=== PATIENT | female | born 1960 | race Caucasian/White ===

== ENCOUNTER 2019-07-11 00:16 | Day surgery (SDC) | payer BC, SELFPAY ==
[2019-07-07 11:13] VITALS: BMI 28.2
[2019-07-11 07:10] VITALS: BP 125/82; PULSE 99; RESP 18; TEMP 36.3; O2SAT 98; BMI 27.9
[2019-07-11] MEDS: LACTATED RINGERS 1,000 ML 150 ML IV CONT (07:26)
--- NOTE | 2019-07-11 07:30 | P.PNAN_ITS ---
Anes - Initial Pre Proc Eval Procedure: Operation Date: 07/11/19 08:15 Proposed Procedures p Screening Colonoscopy - Abilio Saldaña MD Date/Time: 07/11/19 07:30 Surgeon: Abilio Saldaña MD Pre Op Diagnosis: Neoplasm Screening Patient Data Age: 59 Gender: F Height: 5 ft 5 in Weight: 76.1 kg Last Vital Signs Temp 36.3 C L 07/11/19 07:10 Pulse 99 07/11/19 07:10 Resp 18 07/11/19 07:10 BP 125/82 07/11/19 07:10 Pulse Ox 98 07/11/19 07:10 Allergies Allergy/AdvReac Type Severity Reaction Status Date / Time lidocaine AdvReac Intermediate Nervousness Verified 07/11/19 07:08 Home Medications Medication Instructions Recorded Confirmed Type acetaminophen 500 mg capsule 500 mg PO Q6H PRN 05/23/19 07/07/19 History anastrozole 1 mg tablet 1 mg PO DAILY 05/23/19 07/07/19 History cholecalciferol (vitamin D3) 5,000 5,000 unit PO DAILY 05/23/19 07/07/19 History unit disintegrating tablet ferrous sulfate 325 mg (65 mg 325 mg PO DAILY 05/23/19 07/07/19 History iron) tablet risedronate 35 mg tablet 35 mg PO WEEKLY #12 tablet 05/23/19 07/07/19 Rx peg 3350-electrolytes 236 240 ml PO Q10M #4000 ml 06/26/19 Rx gram-22.74 gram-6.74 gram-5.86 gram solution ascorbic acid (vitamin C) [Vitamin 1 g PO DAILY 07/07/19 07/07/19 History C] glucos sul [id number]-Mn 1 cap PO DAILY 07/07/19 07/07/19 History [Glucosamine Chondroitin] lysine 500 mg PO DAILY 07/07/19 07/07/19 History Patient hx anesthesia problems: none Family hx anesthesia problems: none PMFSH Family History Family History Father Family history of chronic obstructive pulmonary disease Family history of lung cancer Grandparent Family history of lung cancer Social History Social History Smoking status: Never smoker Alcohol intake: current Anes - Eval Final PreProcedure Day of Procedure 07/11/19 07:30 Patient weight: overweight Heart: regular rate and rhythm Lungs: clear to auscultation Airway: Mallampati scale class 1 Neurological: alert and oriented Last oral intake: >/= 8 hours ASA classification: II Emergent: no Anesthetic plan: proceed Anesthesia type and monitoring: general GIVS and standard monitoring Informed Consent: The patient's anesthetic plan and its attendant risks and b enefits were discussed with the patient/family/POA. Questions were solicited and answers provided to the satisfaction of the patient/family/POA.
--- NOTE | 2019-07-11 07:59 | PM.HPGS ---
History of Present Illness History of Present Illness Consent: Risks, benefits, and alternatives have been discussed and questions answered. Patient agrees to proceed with procedure. Chief complaint: Neoplasm Screening Narrative: Agata Melvin is a 59 year old female here for her first screening colonoscopy Review of Systems Constitutional: Constitutional: Denies headache(s) and Denies weakness Eyes: Eyes: Denies blurry vision ENT: Reports Normal hearing present, Denies headache(s) and Denies neck pain Cardiovascular: Cardiovascular: Denies chest pain and Denies dyspnea Respiratory: Respiratory: Denies dyspnea Gastrointestinal: Gastrointestinal: Reports no additional gastrointestinal complaints Genitourinary: Genitourinary: Denies dysuria Musculoskeletal: Musculoskeletal: Denies neck pain Integumentary/Breasts: Skin/Breast: Denies dry skin Neurologic: Reports Normal hearing present, Denies headache(s) and Denies weakness Psychiatric: Psychiatric: Denies anxiety Endocrine: Endocrine: Denies change in body appearance Hematologic/Lymphatic: Hematologic/Lymphatic: Denies easy bleeding Allergic/Immunologic: Allergic/Immunologic: Denies urticaria [facility] Family History Family History Father Family history of chronic obstructive pulmonary disease Family history of lung cancer Grandparent Family history of lung cancer Social History Social History Smoking status: Never smoker Alcohol intake: current Meds Home Medications and Allergies Home Medications Medication Instructions Recorded Confirmed Type acetaminophen 500 mg capsule 500 mg PO Q6H PRN 05/23/19 07/07/19 History anastrozole 1 mg tablet 1 mg PO DAILY 05/23/19 07/07/19 History cholecalciferol (vitamin D3) 5,000 5,000 unit PO DAILY 05/23/19 07/07/19 History unit disintegrating tablet ferrous sulfate 325 mg (65 mg 325 mg PO DAILY 05/23/19 07/07/19 History iron) tablet risedronate 35 mg tablet 35 mg PO WEEKLY #12 tablet 05/23/19 07/07/19 Rx peg 3350-electrolytes 236 240 ml PO Q10M #4000 ml 06/26/19 Rx gram-22.74 gram-6.74 gram-5.86 gram solution ascorbic acid (vitamin C) [Vitamin 1 g PO DAILY 07/07/19 07/07/19 History C] glucos sul [id number]-C-Mn 1 cap PO DAILY 07/07/19 07/07/19 History [Glucosamine Chondroitin] lysine 500 mg PO DAILY 07/07/19 07/07/19 History Allergies Allergy/AdvReac Type Severity Reaction Status Date / Time lidocaine AdvReac Intermediate Nervousness Verified 07/11/19 07:08 Vital Signs Vital Signs - 24 hr 07/11/19 07:10 Temperature 97.4 F L Pulse Rate 99 Respiratory Rate 18 Blood Pressure 125/82 Pulse Oximetry 98 Exam Const: General: comfortable and no acute distress HENMT: General nose exam: Normal nares present Eyes: General: appearance normal, both eyes and all related structures Neck: Neck: no JVD Resp: Auscultation: clear to auscultation bilaterally Cardio: Rate: regular rate Rhythm: regular rhythm GI: Inspection: non-distended GI Palp: Yes Soft to palpation Skin: General skin exam: normal color Neuro: General: gait normal Speech: normal speech Extrem: General: normal to inspection Psych: Mental Status: mental status grossly normal Assessment and Plan Assessment and plan (1) Colon cancer screening: Code(s): Z12.11 - Encounter for screening for malignant neoplasm of colon Status: Acute Assessment and Plan: will proceed with colonoscopy
[2019-07-11 08:18] VITALS: BP 81/42; PULSE 80; RESP 19; O2SAT 98
[2019-07-11 08:28] VITALS: BP 91/58; PULSE 83; RESP 14; O2SAT 100
[2019-07-11 08:38] VITALS: BP 106/59; PULSE 77; RESP 12; O2SAT 100
== END 2019-07-11 08:45 | disposition home or self-care (01) ==
PROVIDERS: PCP Internal Medicine; Visit Provider Internal Medicine Gastroenterology
PROC: 0DJD8ZZ Inspection of Lower Intestinal Tract, Via Natural or Artificial Opening Endoscopic (ICD-10-PCS; CPT 45378; principal; 2019-07-11 08:15)
DX: Z12.11 Encounter for screening for malignant neoplasm of colon (principal); K64.8 Other hemorrhoids
CPT/HCPCS: 45378; J2704; J7120

== ENCOUNTER 2020-01-12 07:17 | Outpatient (CLI) | payer BC, SELFPAY ==
--- NOTE | ~2020-01-12 | MM_ITS ---
EXAMINATION: MM screening [facility] BI w zachariah HISTORY: Screening mammogram, history of left breast cancer TECHNIQUE: Craniocaudal and mediolateral oblique 3-D tomosynthesis images were obtained and synthetic 2-D images were generated. CAD analysis was submitted and interpreted. COMPARISON: 12/23/2017, 01/25/2018, 01/04/2018, 12/28/2017, 11/27/2016 BREAST PARENCHYMAL COMPOSITION: The breasts are heterogeneously dense, which may obscure small masses . FINDINGS: Stable lumpectomy changes are present in the left breast. There is no evidence of suspiciou s mass, calcification, or architectural distortion to suggest malignancy in either breast. There has been no suspicious interval change. IMPRESSION: 1. No mammographic evidence of malignancy. 2. Recommend routine screening mammography in one year. BI-RADS Category 2: Benign finding(s). Reviewed, dictated and finalized at location A.
== END 2020-01-12 07:18 | disposition home or self-care (01) ==
LOC: ANHIMG 07:22
PROVIDERS: PCP Internal Medicine; Visit Provider Internal Medicine
DX: Z12.31 Encounter for screening mammogram for malignant neoplasm of breast (principal)
CPT/HCPCS: 77063; 77067

== ENCOUNTER 2020-07-06 08:46 | Outpatient (CLI) | payer BC, SELFPAY ==
--- NOTE | ~2020-07-06 | DEXA_ITS ---
Bone Density Report Name: Agata Melvin Age: 60 Sex: Female Ethnicity: White Date of : 1960 Indication: postmenopausal osteoporosis; height loss; prior fracture; cancer; Referring Provider: Flower Chaudhry Study: Bone densitometry was performed. Exam Date: July 06, 2020 Accession number: [id number] Bone Density: Region BMD T-score Z-score Classification AP Spine (L1-L4) 0.763 -2.6 -1.2 Osteoporosis Femoral Neck (Left) 0.665 -1.7 -0.4 Osteopenia Total Hip (Left) 0.777 -1.3 -0.4 Osteopenia Total Hip Bilateral Avg 0.765 -1.5 -0.5 Osteopenia Femoral Neck (Right) 0.625 -2.0 -0.7 Osteopenia Total Hip (Right) 0.752 -1.6 -0.6 Osteopenia World Health Organization criteria for BMD impression classify patients as: Normal (T-score at or above -1.0), Osteopenia (T-score between -1.0 and -2.5), or Osteoporosis (T-score at or below -2.5). 10-year Fracture Risk: FRAX not reported because: Some T-score for Spine Total or Hip Total or Femoral Neck at or below -2.5 Previous Exams: Region Exam Age BMD T-score BMD Change BMD Change Date g/cm2 vs Baseline vs Previous AP Spine(L1-L4) 07/06/2020 60 0.763 -2.6 -0.011(-1.4%) -0.002(-0.3%) 07/04/2018 58 0.765 -2.6 -0.008(-1.1%) -0.008(-1.1%) 05/19/2016 56 0.773 -2.5 Total Hip(Left) 07/06/2020 60 0.777 -1.3 0.011(1.4%) 0.015(2.0%) 07/04/2018 58 0.762 -1.5 -0.004(-0.6%) -0.004(-0.6%) 05/19/2016 56 0.766 -1.4 Total Hip(Right) 07/06/2020 60 0.752 -1.6 0.007(0.9%) 0.004(0.6%) 07/04/2018 58 0.748 -1.6 0.002(0.3%) 0.002(0.3%) 05/19/2016 56 0.745 -1.6 *Denotes significance at 95% confidence level, LSC for AP Spine = 0.022 g/cm2, LSC for Total Hip = 0.027 g/cm2 Clinical Information Provided by Patient: Has had a low trauma fracture Has used the following medications: Vitamin D, Calcium Has the following medical conditions: Cancer Patient maximum height was 66 Menopause Age: 51 Drinks caffeinated beverages Onset of menses at age 13 Number of children 1 Impression: The patient has established osteoporosis, based on the Total Spine T-score and the existence of a prior fracture. The patient has risk factors, including: previous fracture. No significant bone loss was observed. Discussion: HIGH RISK OF FRACTURE. BONE DENSITY IS UNDESIRABLY LOW AT ONE OR MORE SKELETAL SITES, CONSISTENT WITH POSTMENOPAUSAL OSTEOPOROSIS. This patient's lowest T-score, in a patie
== END 2020-07-06 08:47 | disposition home or self-care (01) ==
PROVIDERS: PCP Internal Medicine; Visit Provider Nurse Practitioner
DX: M81.0 Age-related osteoporosis without current pathological fracture (principal); M85.852 Other specified disorders of bone density and structure, left thigh; M85.851 Other specified disorders of bone density and structure, right thigh
CPT/HCPCS: 77080

== ENCOUNTER 2021-01-30 10:05 | Outpatient (CLI) | payer BC, SELFPAY ==
--- NOTE | ~2021-01-30 | MM_ITS ---
EXAMINATION: MM screening [facility] w zachariah HISTORY: Screening TECHNIQUE: Craniocaudal and mediolateral oblique 3-D tomosynthesis images were obtained and synthetic 2-D images were generated. CAD analysis was submitted and interpreted. COMPARISON: Comparison to multiple prior studies sequentially, with oldest reviewed study dated 11/27/2016. BREAST PARENCHYMAL COMPOSITION: The breasts are heterogeneously dense, which may obscure small masses . FINDINGS: Stable architectural distortion in the left breast, consistent with previous lumpectomy. Th ere is no evidence of suspicious mass, calcification, or architectural distortion to suggest malignan cy in either breast. There has been no suspicious interval change. IMPRESSION: 1. No mammographic evidence of malignancy. 2. Recommend routine screening mammography in one year. BI-RADS Category 2: Benign finding(s). Reviewed, dictated and finalized at location A.
== END 2021-01-30 10:06 | disposition home or self-care (01) ==
PROVIDERS: PCP Internal Medicine; Visit Provider Obstetrics & Gynecology
DX: Z12.31 Encounter for screening mammogram for malignant neoplasm of breast (principal)
CPT/HCPCS: 77063; 77067

== ENCOUNTER 2022-03-26 07:27 | Outpatient (CLI) | payer BC, SELFPAY ==
--- NOTE | ~2022-03-26 | MM_ITS ---
EXAMINATION: MM screening [facility] w zachariah HISTORY: Screening mammogram TECHNIQUE: Craniocaudal and mediolateral oblique 3-D tomosynthesis images were obtained and synthetic 2-D images were generated. CAD analysis was submitted and interpreted. COMPARISON: 01/30/2021, 01/12/2020, 01/02/2019 bilateral screening mammogram examinations BREAST PARENCHYMAL COMPOSITION: The breasts are heterogeneously dense, which may obscure small masses . FINDINGS: Postoperative surgical changes from partial mastectomy on the left are again noted. Biopsy markers are noted bilaterally. There are scattered bilateral benign calcifications. There is no evidence of suspicious mass, calcifi cation, or new architectural distortion to suggest malignancy in either breast. There has been no hong picious interval change. IMPRESSION: 1. No mammographic evidence of malignancy. 2. Recommend routine screening mammography in one year. BI-RADS Category 2: Benign finding(s). Reviewed, dictated and finalized at location A. [employer]
== END 2022-03-26 07:28 | disposition home or self-care (01) ==
PROVIDERS: PCP Internal Medicine; Visit Provider Internal Medicine
DX: Z12.31 Encounter for screening mammogram for malignant neoplasm of breast (principal)
CPT/HCPCS: 77063; 77067

== ENCOUNTER 2023-03-29 07:24 | Outpatient (CLI) | payer BC, SELFPAY ==
--- NOTE | ~2023-03-29 | MM_ITS ---
EXAMINATION: MM screening [facility] w zachariah HISTORY: Screening mammogram, history of left breast cancer TECHNIQUE: Craniocaudal and mediolateral oblique 3-D tomosynthesis images were obtained and synthetic 2-D images were generated. CAD analysis was submitted and interpreted. COMPARISON: 03/26/2022, 01/30/2021, 01/12/2020 BREAST PARENCHYMAL COMPOSITION: The breasts are heterogeneously dense, which may obscure small masses . FINDINGS: There are stable lumpectomy changes of the left breast. No suspicious mass, calcification, or architectural distortion are identified in either breast to suggest malignancy. There has been no suspicious interval change. IMPRESSION: 1. No mammographic evidence of malignancy. 2. Recommend routine screening mammography in one year. BI-RADS Category 2: Benign finding(s). Reviewed, dictated and finalized at location A. LY NURSE
== END 2023-03-29 07:25 | disposition home or self-care (01) ==
LOC: ANHIMG 07:27
PROVIDERS: PCP Nurse Practitioner Family; Visit Provider Obstetrics & Gynecology
DX: Z12.31 Encounter for screening mammogram for malignant neoplasm of breast (principal)
CPT/HCPCS: 77063; 77067

== ENCOUNTER 2023-06-08 08:47 | Outpatient (CLI) | payer BC, SELFPAY ==
--- NOTE | ~2023-06-08 | DEXA_ITS ---
Bone Density Report Name: JENNIFER BARAJAS Age: 63 Sex: Female Ethnicity: White Date of : 1960 Indication: postmenopausal osteoporosis; monitoring treatment; parental hip fracture; height loss; prior fracture; cancer; Referring Provider: JEREMY JADE Study: Bone densitometry was performed. Exam Date: June 08, 2023 Accession number: [id number] Bone Density: Region BMD T-score Z-score Classification AP Spine(L1-L4) 0.824 -2.0 -0.4 Osteopenia Femoral Neck (Left) 0.696 -1.4 0.0 Osteopenia Total Hip (Left) 0.810 -1.1 0.0 Osteopenia Femoral Neck (Right) 0.637 -1.9 -0.5 Osteopenia Total Hip (Right) 0.778 -1.3 -0.2 Osteopenia Total Hip Mean 0.794 -1.2 -0.1 Osteopenia World Health Organization criteria for BMD impression classify patients as: Normal (T-score at or above -1.0), Osteopenia (T-score between -1.0 and -2.5), or Osteoporosis (T-score at or below -2.5). 10-year Fracture Risk: FRAX not reported because: Prior hip or vertebral fracture Treated for osteoporosis Previous Exams: Region Exam Age BMD T-score BMD Change BMD Change Date g/cm2 vs Baseline vs Previous AP Spine (L1-L4) 06/08/2023 63 0.824 -2.0 0.051 (6.6%)* 0.061 (8.1%)* 07/06/2020 60 0.763 -2.6 -0.011 (-1.4%) -0.002 (-0.3%) 07/04/2018 58 0.765 -2.6 -0.008 (-1.1%) -0.008 (-1.1%) 05/19/2016 56 0.773 -2.5 Total Hip(Left) 06/08/2023 63 0.810 -1.1 0.044 (5.7%)* 0.033 (4.2%)* 07/06/2020 60 0.777 -1.3 0.011 (1.4%) 0.015 (2.0%) 07/04/2018 58 0.762 -1.5 -0.004 (-0.6%) -0.004 (-0.6%) 05/19/2016 56 0.766 -1.4 Total Hip(Right) 06/08/2023 63 0.778 -1.3 0.032 (4.3%)* 0.026 (3.4%) 07/06/2020 60 0.752 -1.6 0.007 (0.9%) 0.004 (0.6%) 07/04/2018 58 0.748 -1.6 0.002 (0.3%) 0.002 (0.3%) 05/19/2016 56 0.745 -1.6 *Denotes significance at 95% confidence level, LSC for AP Spine = 0.022 g/cm2, LSC for Total Hip = 0.027 g/cm2 Clinical Information Provided by Patient: Have had a previous hip or vertebral fracture Has had a low trauma fracture Parent has had a hip fracture Is being treated for osteoporosis Has used the following medications: Actonel (i.e. risedronate), Vitamin D, Calcium Has the following medical conditions: Cancer Patient maximum height was 67 Menopause Age: 51 No regular weight bearing exercise Onset of menses at age 12 Number of children 1 Impression: The patient has low bone
== END 2023-06-08 08:48 | disposition home or self-care (01) ==
PROVIDERS: PCP Nurse Practitioner Family; Visit Provider Nurse Practitioner Family
DX: Z13.820 Encounter for screening for osteoporosis (principal); M85.88 Other specified disorders of bone density and structure, other site; M85.852 Other specified disorders of bone density and structure, left thigh; M85.851 Other specified disorders of bone density and structure, right thigh
CPT/HCPCS: 77080

== ENCOUNTER 2024-05-16 07:15 | Outpatient (CLI) | payer BC, SELFPAY ==
--- NOTE | ~2024-05-16 | MM_ITS ---
EXAMINATION: MM screening [facility] w zachariah HISTORY: Screening mammogram TECHNIQUE: Craniocaudal and mediolateral oblique 3-D tomosynthesis images were obtained and synthetic 2-D images were generated. CAD analysis was submitted and interpreted. COMPARISON: 03/29/2023, 03/26/2022, 01/30/2021 BREAST PARENCHYMAL COMPOSITION:Dense: The breasts are heterogeneously dense, which may obscure small masses. FINDINGS: Stable postoperative distortion in the left breast. No suspicious mass, calcification, or a rchitectural distortion are identified in either breast to suggest malignancy. There has been no susp icious interval change. IMPRESSION: No mammographic evidence of malignancy. Recommend routine screening mammography in one year. BI-RADS Category 2: Benign finding(s). Reviewed, dictated and finalized at [facility]. K BROKER
== END 2024-05-16 07:16 | disposition home or self-care (01) ==
PROVIDERS: Visit Provider Obstetrics & Gynecology
DX: Z12.31 Encounter for screening mammogram for malignant neoplasm of breast (principal)
CPT/HCPCS: 77063; 77067